=== PATIENT | female | born 2000 | race Caucasian/White ===

== ENCOUNTER 2020-11-02 15:17 | Emergency (ER) | payer OTHER, SELFPAY ==
[2020-11-02 15:19] VITALS: BP 122/79; PULSE 108; RESP 15; TEMP 36.8; O2SAT 97; BMI 19.3
[2020-11-02] MEDS: 0.9% Normal Saline 1,000 ML 1000 ML IV (15:42)
[2020-11-02] MEDS: Ondansetron 4 MG/2 ML Vial IV (15:43)
[2020-11-02 15:49] LABS: Absolute Lymphocyte Count 1.25 X10^3/uL (0.83-4.51); Basophil# 0.05 X10^3/uL; Basophil% 0.6 % (0-1); Eosinophil# 0.02 X10^3/uL; Eosinophils% 0.2 % (0-5); Hematocrit 42.1 % (37-47); Hemoglobin 13.9 g/dL (12.0-15.0); Lymphocyte # 1.25 X10^3/ul (0.83-4.51); Lymphocyte % 14.2 % (19-41); Mean Corpuscular Hgb 30.1 pg (27.0-32.0); Mean Corpuscular Volume 91.1 fL (81-99); Monocyte% 4.6 % (0-10); NRBC Flagged by Analyzer 0 % (0-5); Neutrophil # 7.03 X10^3/uL (2.7-7.7); Neutrophil % 80.1 % (47-70); Platelet Count 270 K/mm3 (150-450); RBC Distribution Width CV 12.1 % (11.6-14.6); RBC Distribution Width SD 40.5 fl (35.1-43.9); Red Blood Count 4.62 M/mm3 (4.2-5.4); White Blood Count 8.8 K/mm3 (4.4-11.0)
--- NOTE | 2020-11-02 15:51 | ED.VISSUMM ---
- ER Visit Summary Date of Service: 11/02/20 Chief Complaint: Nausea History of Present Illness: The patient is a [address] Menjivar seen. She reports has been nauseated for the past week. She has not vomited. She denies any abdominal pain. She reports she has diarrhea initially, but has not had any diarrhea for 5 days. Her last bowel was yesterday. She denies any melena hematochezia. Patient is a . Her last menstrual period was September 18. She does have a history of irregular periods. She denies any dysuria or frequency. Physical Examination: Vitals: Stable. Afebrile. General: Well-nourished and well-developed. Head: Normocephalic atraumatic. Neck: Supple, no lymphadenopathy. No JVD. Nontender. Cardiovascular: Regular rate and rhythm. No murmurs. Respiratory: No respiratory distress. Clear to auscultation bilaterally. Abdominal: Soft, mild epigastric tenderness to palpation, nondistended, normal bowel sounds. No guarding, rebound, or peritoneal signs. Back: Nontender. Extremities: Nontender, no edema. Skin: Normal color, no rash. Neurologic: Alert and oriented ?3. Cranial nerves II through XII are intact. Normal strength and sensation. Psych: Normal affect. Test Results: CBC shows segmented feels 80 lymphocytes 14. Chem-7 is normal. LFTs show an AST of 8. UA shows 10-25 epithelial cells and 1+ bacteria. test is positive. Quantitative hCG is 24,394. Emergency Department Course and Treatment: Patient had an IV placed. She was given a liter normal saline. She was given Zofran IV. She is resting more comfortably. She refused pain medications. Bedside ultrasound I am unable to visualize an intrauterine . However, with her quantitative hCG being this high and no pain or vaginal bleeding I do feel it is reasonable to get an outpatient ultrasound. The patient does not want to stay for transvaginal ultrasound. Treatment Plan: Patient be discharged instructions follow-up Dr. Prakash Hilario within a week for another exam. She will be discharged with Zofran. She is instructed to return for pain, vaginal bleeding, or any other concerns. Disposition: To home in improved and stable condition. Impression: 1. , new diagnosis. 2. Nausea This note was generated with Dragon dictation software. It may contain incorrect words, spelling, and punctuation that were not noted in review of the chart prior to signing ED Disposition - Plan for ED Patient: Instructions: ED , New Dx Prescriptions: Ondansetron [Zofran Odt] 4 mg PO Q8H PRN PRN #10 tablet PRN Reason: Nausea Referrals: Lucille Trujillo MD [STAFF PHYSICIAN] - 1 Week
[2020-11-02 15:59] LABS: Internal QC Validated? YES +Cl - CLEAR BKGD
[2020-11-02 16:00] LABS: Pregnancy, Serum, hCG Quali. POSITIVE Negative
[2020-11-02 16:06] LABS: AST(SGOT) 8 U/L (15-37); Alanine Aminotransfer ALT/SGPT 15 U/L (13-56); Albumin, Serum 4.1 g/dL (3.2-5.0); Alkaline Phosphatase 62 U/L (45-117); Anion Gap 9 (5-15); BUN 12 mg/dL (7-18); BUN/Creat Ratio 17.8 RATIO (10-20); Calcium,Total 8.9 mg/dL (8.5-10.1); Chloride 104 mmol/L (98-107); Creatinine, Serum 0.68 mg/dL (0.55-1.02); EST Glomerular Filtration Rate 115 mL/min (>60); Est Glom Filt Rate - Afr Amer 139 mL/min (>60); Estimated Creatinine Clearance 111.24 ml/min; Glucose 92 mg/dL (74-106); Lipase 126 U/L (73-393); Potassium 3.5 mmol/L (3.5-5.1); Protein, Total 8.1 g/dL (6.4-8.2); Sodium Level 136 mmol/L (136-145)
[2020-11-02 16:37] LABS: Color, Urine Yellow (Yellow); Glucose, Dipstick Normal (Normal); Leukocyte Esterase-Dipstick 100 /ul (Negative); Nitrite-Dipstick Negative (Negative); Occult Blood-Urine 10 /ul (Negative); Protein-Dipstick 15 mg/dl (Negative); Specific Gravity, Urine 1.025 (1.002-1.030); Urine Bilirubin Dipstick Negative (Negative); Urine Clarity Sl. Cloudy (Clear); Urine Urobilinogen Normal (Normal)
[2020-11-02 16:42] LABS: Ketone-Dipstick 150 mg/dl (Negative); Squamous Epithelial Cells - UA 10-25 SEEN /hpf (5-10); White Blood Cells 0-5 SEEN /hpf (0-5)
[2020-11-02 16:43] LABS: Bacteria 1+ /hpf (None Seen); Mucous, Urine 2+ /hpf (<or=2+); Red Blood Cells-Urine 0-5 SEEN /hpf (0-5)
[2020-11-02 16:45] LABS: hCG Titer Quant., Serum 24394 mIU/mL (1-3)
[2020-11-02 17:11] VITALS: BP 117/77; PULSE 70; RESP 16
== END 2020-11-02 17:12 | disposition home or self-care (01) ==
LOC: ED 16:00
PROVIDERS: Emergency Provider Emergency Medicine
DX: O26.891 Other specified pregnancy related conditions, first trimester (principal); R11.0 Nausea; R51.9 Headache, unspecified; O99.281 Endocrine, nutritional and metabolic diseases complicating pregnancy, first trimester; E03.9 Hypothyroidism, unspecified; Z3A.00 Weeks of gestation of pregnancy not specified; Z79.890 Hormone replacement therapy
CPT/HCPCS: 80053; 81001; 83690; 84702; 84703; 85025; 87086; 87088; 96361; 96374; 99283; J7030; J2405

== ENCOUNTER → 2020-11-13 15:30 | Outpatient (CLI) | payer OTHER, SELFPAY ==
[2020-11-02 15:19] VITALS: BMI 19.3
[2020-11-13 17:40] LABS: Absolute Lymphocyte Count 1.48 X10^3/uL (0.83-4.51); Absolute Neutrophil Count 10.9 X10^3/uL (2.0-7.7); Basophil# 0.06 X10^3/uL; Basophil% 0.5 % (0-1); Eosinophil# 0.06 X10^3/uL; Eosinophils% 0.5 % (0-5); Hematocrit 44.6 % (37-47); Hemoglobin 14.6 g/dL (12.0-15.0); Lymphocyte # 1.48 X10^3/ul (0.83-4.51); Lymphocyte % 11.3 % (19-41); Mean Corp Hgb Conc 32.7 g/dL (32-36); Mean Corpuscular Hgb 30.4 pg (27.0-32.0); Mean Corpuscular Volume 92.7 fL (81-99); Mean Platelet Vol. 10.8 fl (6.2-12.0); Monocyte# 0.56 X10^3/uL; Monocyte% 4.3 % (0-10); NRBC Flagged by Analyzer 0 % (0-5); Neutrophil # 10.87 X10^3/uL (2.7-7.7); Neutrophil % 83.1 % (47-70); Platelet Count 340 K/mm3 (150-450); RBC Distribution Width SD 41.4 fl (35.1-43.9); Red Blood Count 4.81 M/mm3 (4.2-5.4); White Blood Count 13.1 K/mm3 (4.4-11.0)
[2020-11-13 18:04] LABS: T4 Free Direct 0.91 ng/dL (0.76-1.46); Thyroid Stim Hormone (TSH) 2.53 uIU/mL (0.358-3.74)
[2020-11-14 09:03] LABS: HIV - WCH Non-Reactive (Nonreactive); Hepatitis B Surface Antigen Non-Reactive (Nonreactive); Hepatitis C Antibody Non-Reactive (Nonreactive); Rubella IgG Reactive (Nonreactive); Syphilis Antibodies Non-reactive
[2020-11-18 03:06] LABS: Chlamydia By Nucleic Acid AMP Negative (Negative)
[2020-11-18 11:00] LABS: Gonococcus By Nucleic Acid AMP Negative (Negative)
== END ==
PROVIDERS: Visit Provider Obstetrics & Gynecology
DX: O99.281 Endocrine, nutritional and metabolic diseases complicating pregnancy, first trimester (principal); E03.9 Hypothyroidism, unspecified; Z3A.00 Weeks of gestation of pregnancy not specified
CPT/HCPCS: 36415; 84439; 84443; 85025; 86703; 86762; 86780; 86803; 87086; 87088; 87340; 87491; 87591

== ENCOUNTER → 2020-12-08 | Outpatient (CLI) | payer OTHER, SELFPAY | END | disposition home or self-care (01) | LOC: LABSPEC 14:14 | PROVIDERS: Visit Provider Obstetrics & Gynecology | DX: N39.0 Urinary tract infection, site not specified (principal) | CPT/HCPCS: 87077; 87086; 87088; 87186 ==

== ENCOUNTER → 2021-01-08 09:29 | Outpatient (CLI) | payer OTHER, SELFPAY ==
[2021-01-08 13:44] LABS: Thyroid Stim Hormone (TSH) 2.79 uIU/mL (0.358-3.74)
[2021-01-10 03:06] LABS: AFP MoM Value 1.44 (.); AFP Value-EIA 50.6 ng/mL (.); Comment Report (.); DIA MoM Value 0.62 (.); DIA Value-EIA 122.93 pg/mL (.); DSR (By Age) 1094 (.); DSR (Second Trimester) 6366 (.); Gestat. Age Based On As provided (.); Insulin Dep Diabetes No (.); Maternal Age At EDD 23.3 yr (.); hCG MoM 0.69 (.); hCG Value 45000 mIU/mL (.)
== END ==
PROVIDERS: Visit Provider Obstetrics & Gynecology
DX: Z36.1 Encounter for antenatal screening for raised alphafetoprotein level (principal); E03.9 Hypothyroidism, unspecified
CPT/HCPCS: 36415; 82105; 82677; 84443; 84702

== ENCOUNTER 2021-02-27 22:17 | Emergency (ER) | payer OTHER, SELFPAY ==
[2021-02-27 22:18] VITALS: BP 113/82; PULSE 95; RESP 15; TEMP 36.6; O2SAT 98; BMI 34.7
--- NOTE | 2021-02-27 22:19 | ED.RN ---
RN CALLED FOR EKG, NO OLD EKGS IN MUSE
[2021-02-27 23:29] VITALS: PULSE 79; RESP 17; O2SAT 95
--- NOTE | 2021-02-27 23:52 | EKG12_ITS ---
Test Reason : CP Blood Pressure : / mmHG Vent. Rate : 099 BPM Atrial Rate : 099 BPM P-R Int : 164 ms QRS Dur : 076 ms QT Int : 364 ms P-R-T Axes : 065 057 017 degrees QTc Int : 467 ms Normal sinus rhythm with sinus arrhythmia Nonspecific T wave abnormality Prolonged QT Abnormal ECG Confirmed by RADHA SALAZAR, NAZIA ([id number]), science editor SEBASTIAN BRUCE ([id number]) on 03/03/2021 9:46:19 AM Referred By: BERTA Confirmed By:NAZIA GARCIA MD
--- NOTE | 2021-02-27 23:53 | EDS_ITS ---
HPI History of Present Illness Chief Complaint: Chest Pain Informant: patient Onset/Context/Timing Onset: Yesterday Activity at onset: gradual Timing: Continuous Quality: Positive for Heaviness (With occasional mid chest sharp pain that radiates to upper back, neck, jaw when it occurs) Location: Substernal Current Severity: Moderate Maximum Severity: Moderate Worsened By: Breathing; Not Worsened By Exertion, Movement of Arm and Movement of Torso Relieved By: Nothing Associated Symptoms: Positive for Dyspnea (Mild) and Acid Reflux (Throughout recently, symptoms that are different than what she has now); Negative for Nausea, Vomiting, Diaphoresis, Cough, Fever, Lightheadedness and Palpitations Narrative Narrative: Healthy 21-year-old female G1, P0 approximately 20 weeks , presenting with pleuritic midsternal nonlateralizing chest discomfort with some mild dyspnea that started yesterday. No recent cough, fevers, chills, body aches, exposure to Covid that she knows of. She has never had Covid and never been vaccinated. She denies any leg pain or swelling. No history of DVT or PE. No other source of exogenous hormones. Was seen at urgent care today simply for itchy rash that she thinks is poison efren. No injuries recently or other illness. [facility] Medical History Hypothyroidism Home Medications levothyroxine 50 mcg PO DAILY 11/02/20 [History Last Taken Unknown] ondansetron 4 mg PO Q8H PRN PRN #10 tablet 11/02/20 [Rx Last Taken Unknown] famotidine 40 mg PO DAILY #30 tab 02/28/21 [Rx Last Taken Unknown] Allergy/AdvReac Type Severity Reaction Status Date / Time Penicillins [PCN] Allergy Hives Verified 11/02/20 15:18 Sulfa (Sulfonamide Allergy Hives Verified 11/02/20 15:18 Antibiotics) Social History Smoking Status: Never smoker ROS ROS ED Constitutional Constitutional ED: Denies chills or fever(s) Eyes Eyes: Denies change in vision or diplopia ENT ENT ED: Denies rhinorrhea or sore throat Cardiovascular Cardiovascular: Reports as per HPI and chest pain; Denies palpitations Respiratory/Chest Respiratory/Chest: Reports as per HPI and dyspnea; Denies cough Gastrointestinal Gastrointestinal: Denies abdominal pain, diarrhea, nausea or vomiting Genitourinary Genitourinary ED: Denies dysuria or hematuria Musculoskeletal Musculoskeletal: Denies back pain or neck pain Integumentary Denies abscess or rash Neurologic Neurologic: Denies headache(s), paresthesias or weakness Psychiatric Psychiatric: Denies anxiety or suicidal thoughts EXAM Physical Exam Const Vital Signs: 02/27/21 22:18 02/27/21 23:29 02/28/21 00:06 Temperature 97.8 F Temperature Source Temporal Pulse Rate 95 79 Respiratory Rate 15 17 Respiratory Effort Blood Pressure 113/82 H Blood Pressure Mean 92 Pulse Ox 98 95 Oxygen Delivery Method Room Air Room Air Room Air 02/28/21 00:08 02/28/21 01:25 Temperature Temperature Source Pulse Rate 78 Respiratory Rate 18 Respiratory Effort Normal Blood Pressure 116/76 Blood Pressure Mean 89 Pulse Ox 100 Oxygen Delivery Method Room Air Positive well nourished and well developed Constitutional Narrative: Well-appearing, conversive in full sentences General Appearance ED: well developed and NAD HEENT Reports moist mucous membranes normocephalic and atraumatic Eyes PERRL and EOMs intact bilaterally Neck full ROM and supple Resp normal respiratory effort and clear to auscultation bilaterally Cardio regular rate, regular rhythm, no murmurs, no rub, no gallops and no JVD Rate: tachycardic GI non-tender and non-distended Auscultation: normoactive bowel sounds Palpation: soft Back/Spine no CVA tenderness General Back: other FROM Extremity normal to inspection and no calf tenderness General Extremety ED: Negative for edema, pulses abnormal or tenderness General Extremity: Negative for edema or pulses abnormal Neuro oriented x3, CN's II-XII intact bilaterally and no sensory deficits noted Sensorium / Orientation: awake and alert Motor Exam: strength 5/5 throughout Skin no rashes or lesions noted and no wounds MDM MDM MDM Narrative Medical decision making narrative: Given the history, a D-dimer was obtained, it is abnormal as often is the case in . I discussed pros and cons of CT angiography of the chest to rule out pulmonary embolus, patient is comfortable with getting the CT given the fact that in my opinion the benefits of it outweig h the risks. She was shielded. It shows no pulmonary embolus as below, no other abnormalities. I held off on getting a chest x-ray until the D-dimer was back so as to minimize the radiation-providing studies. Patient was given a GI cocktail that did improve her symptoms. Since all the other tests are negative, I think it is reasonable to treat her with Pepcid until she follows up with her doctor. She is comfortable with that plan. Lab Data Attestation: I reviewed the patient's lab results. Labs: Laboratory Results - last 24 hr 02/28/21 02/28/21 02/28/21 00:03 00:03 00:03 WBC 11.3 H RBC 3.49 L Hgb 11.3 L Hct 32.7 L MCV 93.7 MCH 32.4 H MCHC 34.6 RDW Std Deviation 45.1 H RDW Coeff of Kahlil 13.2 Plt Count 245 MPV 9.7 Immature Gran % (Auto) 0.500 Neut % (Auto) 73.3 H Lymph % (Auto) 17.0 L Stephenson % (Auto) 5.8 Eos % (Auto) 2.8 Baso % (Auto) 0.6 Absolute Neuts (auto) 8.3 H Absolute Lymphs (auto) 1.93 Nucleated RBC % 0 D-Dimer Quant (PE/DVT) 0.77 H* Sodium 138 Potassium 3.9 Chloride 108 H Carbon Dioxide 25.0 Anion Gap 5 BUN 9 Creatinine 0.37 L Estim Creat Clear Calc 221.37 Est GFR (MDRD) Af Amer 275 Est GFR (MDRD) Non-Af 227 BUN/Creatinine Ratio 24.1 H Glucose 81 Calcium 8.3 L Troponin I High Sens < 3.0 L Radiography Diagnostic Testing: Radiology Impression Chest CTA 02/28/21 00:45 IMPRESSION: No acute finding in the chest with no evidence of pulmonary embolism. Electronically Signed: Chris Zambrano MD at 1:29 EDT Tel , Service support , EKG Initial EKG: Attestation: I personally reviewed and interpreted this EKG as follows: Interpretation: Sinus Arrythmia and Non-Specific ST Changes Comments: No [id number] Discharge Plan Triage Chief Complaint: Chest Pain ED Provider: Lakhwinder Brown Dx/Rx/DC Orders Clinical Impression: Chest pain during Instructions: ED Chest Pain, Noncardiac Prescriptions: New famotidine 40 mg tablet 40 mg PO DAILY Qty: 30 RF: 0 No Action levothyroxine 50 MCG tablet 50 mcg PO DAILY RF: 0 ondansetron 4 MG tablet 4 mg PO Q8H PRN PRN (Reason: Nausea) Qty: 10 RF: 0 Primary Care Provider: [facility] Doctor,Out of Referrals: [facility] Doctor,Out of [Primary Care Provider] - 1 Week if not improving Disposition Disposition: Home, Self Care
[2021-02-28] MEDS: Mag Hydrox/Al Hydrox/Simeth 30 ML UDC PO
[2021-02-28 00:14] LABS: Absolute Lymphocyte Count 1.93 X10^3/uL (0.83-4.51); Absolute Neutrophil Count 8.3 X10^3/uL (2.0-7.7); Basophil# 0.07 X10^3/uL; Basophil% 0.6 % (0-1); Eosinophil# 0.32 X10^3/uL; Eosinophils% 2.8 % (0-5); Hematocrit 32.7 % (37-47); Hemoglobin 11.3 g/dL (12.0-15.0); Lymphocyte # 1.93 X10^3/ul (0.83-4.51); Mean Corp Hgb Conc 34.6 g/dL (32-36); Mean Corpuscular Hgb 32.4 pg (27.0-32.0); Mean Corpuscular Volume 93.7 fL (81-99); Mean Platelet Vol. 9.7 fl (6.2-12.0); Monocyte# 0.66 X10^3/uL; Monocyte% 5.8 % (0-10); NRBC Flagged by Analyzer 0 % (0-5); Neutrophil # 8.29 X10^3/uL (2.7-7.7); Neutrophil % 73.3 % (47-70); Platelet Count 245 K/mm3 (150-450); RBC Distribution Width CV 13.2 % (11.6-14.6); RBC Distribution Width SD 45.1 fl (35.1-43.9); Red Blood Count 3.49 M/mm3 (4.2-5.4); White Blood Count 11.3 K/mm3 (4.4-11.0)
[2021-02-28 00:33] LABS: Anion Gap 5 (5-15); BUN 9 mg/dL (7-18); BUN/Creat Ratio 24.1 RATIO (10-20); Calcium,Total 8.3 mg/dL (8.5-10.1); Chloride 108 mmol/L (98-107); Creatinine, Serum 0.37 mg/dL (0.55-1.02); EST Glomerular Filtration Rate 227 mL/min (>60); Est Glom Filt Rate - Afr Amer 275 mL/min (>60); Estimated Creatinine Clearance 221.37 ml/min; Glucose 81 mg/dL (74-106); Potassium 3.9 mmol/L (3.5-5.1); Sodium Level 138 mmol/L (136-145); Troponin-I HS < 3.0 pg/mL (3.0-53.7)
[2021-02-28 00:36] LABS: D-Dimer Quantitative (DVT/PE) 0.77 FEU/ug/m (0.27-0.49)
--- NOTE | 2021-02-28 00:45 | CT_ITS ---
STUDY: CTA CHEST REASON FOR EXAM: Female, 21 years old. chest pain, sob, , elevated d-dimer RADIATION DOSAGE (If Supplied By Facility): CTDIvol = ( 9.34 ) mGy, DLP = ( 287.04 ) mGycm TECHNIQUE: The examination was performed with the intravenous administration of IV 75mL Isovue-370. Post-processing of the angiographic images was performed, with multiplanar reformation and 3D reconstruction. Individualized dose optimization techniques were used for this CT. COMPARISON: None. FINDINGS: No filling defect in the pulmonary arteries to suggest pulmonary embolism. Intact thoracic aorta and coronary arteries. No adenopathy. No pleural or pericardial effusion. Mildly enlarged and nodular thyroid. The dominant nodule is located in the right lobe and measures up to 1.6 cm ultrasound may be obtained for further evaluation. No pneumothorax. No suspicious pulmonary nodule, mass, or consolidation. Sections through the upper abdomen demonstrate intact visualized abdominal viscera. No acute finding the regional skeleton. CT/CTA Chest W/WO Contrast IMPRESSION: No acute finding in the chest with no evidence of pulmonary embolism. Electronically Signed: Chris Zambrano MD at 1:29 EDT Tel , Service support ,
[2021-02-28] MEDS: 0.9% Normal Saline 1,000 ML 999 ML IV (00:57)
[2021-02-28 01:25] VITALS: BP 116/76; PULSE 78; RESP 18; O2SAT 100
[2021-02-28] MEDS: Famotidine 20 MG Tablet 40 MG PO (02:00)
[2021-02-28 02:01] VITALS: BP 109/76
== END 2021-02-28 02:02 | disposition home or self-care (01) ==
PROVIDERS: Emergency Provider Emergency Medicine
DX: O99.891 Other specified diseases and conditions complicating pregnancy (principal); R07.9 Chest pain, unspecified; O99.282 Endocrine, nutritional and metabolic diseases complicating pregnancy, second trimester; E03.9 Hypothyroidism, unspecified; O99.612 Diseases of the digestive system complicating pregnancy, second trimester; K21.9 Gastro-esophageal reflux disease without esophagitis; Z3A.20 20 weeks gestation of pregnancy
CPT/HCPCS: 71275; 80048; 84484; 85025; 85379; 93005; 96360; 99285; J7030; Q9967; A4216

== ENCOUNTER 2021-03-14 20:01 | Outpatient (CLI) | payer OTHER, SELFPAY ==
[2021-03-14 20:15] VITALS: BMI 21.0
[2021-03-14 20:16] VITALS: TEMP 37.6
[2021-03-14 20:23] VITALS: BP 132/83; PULSE 78; PULSE 82; O2SAT 100
[2021-03-14] MEDS: cycloBENZAPRine HCl 10 MG Tablet PO (21:02)
--- NOTE | 2021-03-14 21:12 | OB.TRI.NOTE ---
HPI - General HPI Narrative ALEXA DOMINGUEZ, is a 21 F who presents with pelvic pain PFSH PFSH Medical History Hypothyroidism Home Medications ondansetron 4 mg PO Q8H PRN PRN #10 tablet 11/02/20 [Rx Last Taken Unknown] acetaminophen [Tylenol] 325 mg PO Q6H 03/14/21 [History Last Taken Unknown] [id number] [] tab PO 03/14/21 [History Last Taken Unknown] Allergy/AdvReac Type Severity Reaction Status Date / Time Latex, Natural Rubber Allergy Rash Verified 03/14/21 20:35 Penicillins [PCN] Allergy Hives Verified 11/02/20 15:18 Sulfa (Sulfonamide Allergy Hives Verified 11/02/20 15:18 Antibiotics) Social History Smoking Status: Never smoker NST FHR Rate Baby A Baseline: 140 Variability:: Moderate Accelerations:: 10 x 10 NST Reactive:: Yes Uterine Activity:: Quiet Assessment & Plan (1) : PLAN: Patient arrives with pelvic pain. No signs of labor. UTI, Rx Macrobid sent. Resolved with Flexeril. Okay to discharge home and follow-up at scheduled appointments
[2021-03-14 21:27] LABS: Color, Urine Yellow (Yellow); Glucose, Dipstick Normal (Normal); Ketone-Dipstick Negative (Negative); Leukocyte Esterase-Dipstick 100 /ul (Negative); Nitrite-Dipstick Negative (Negative); Occult Blood-Urine Negative /ul (Negative); Protein-Dipstick Negative (Negative); Specific Gravity, Urine 1.015 (1.002-1.030); Urine Bilirubin Dipstick Negative (Negative); Urine Clarity Sl. Cloudy (Clear); Urine Urobilinogen Normal (Normal)
== END 2021-03-14 21:45 | disposition home or self-care (01) ==
LOC: WPOUT 20:14 → WP 20:14
PROVIDERS: Visit Provider Obstetrics & Gynecology
DX: O23.40 Unspecified infection of urinary tract in pregnancy, unspecified trimester (principal); O99.280 Endocrine, nutritional and metabolic diseases complicating pregnancy, unspecified trimester; E03.9 Hypothyroidism, unspecified; Z3A.00 Weeks of gestation of pregnancy not specified
CPT/HCPCS: 59025; 59050; 81002; 99218; G0378

== ENCOUNTER 2021-03-16 20:20 | Outpatient (CLI) | payer OTHER, SELFPAY ==
[2021-03-16] VITALS (9 sets, daily range): BP systolic 116–125; BP diastolic 71–83; PULSE 80–93; TEMP 36.8; O2SAT 92–100; BMI 20.4
[2021-03-16] MEDS: cycloBENZAPRine HCl 10 MG Tablet PO (22:09)
[2021-03-16] MEDS: Ceftriaxone 1 GM Vial IM (22:22)
--- NOTE | 2021-03-17 12:34 | OB.TRI.NOTE ---
HPI - General HPI Narrative ALEXA DOMINGUEZ, is a 21 F who presents back pain PFSH PFSH Medical History Hypothyroidism Home Medications ondansetron 4 mg PO Q8H PRN PRN #10 tablet 11/02/20 [Rx Last Taken Unknown] acetaminophen [Tylenol] 325 mg PO Q6H 03/14/21 [History Last Taken Unknown] [id number] [] 1 tab PO DAILY 03/14/21 [History Last Taken 03/14/21 08:00] Allergy/AdvReac Type Severity Reaction Status Date / Time Latex, Natural Rubber Allergy Rash Verified 03/16/21 20:58 Penicillins [PCN] Allergy Hives Verified 03/16/21 20:58 Sulfa (Sulfonamide Allergy Hives Verified 03/16/21 20:58 Antibiotics) Social History Smoking Status: Never smoker NST FHR Rate Baby A Baseline: 140 Assessment & Plan (1) : PLAN: Patient arrives with back pain. Previously given Macrobid diagnosed with UTI and Flexeril, patient did not take any of these medications. Today given Rocephin 1 g IM and Flexeril. Encouraged to take at home medications.
== END 2021-03-16 23:15 | disposition home or self-care (01) ==
LOC: WPOUT 20:36 → WP 20:37
PROVIDERS: Referring Provider Obstetrics & Gynecology; Visit Provider Obstetrics & Gynecology
DX: O99.891 Other specified diseases and conditions complicating pregnancy (principal); M54.9 Dorsalgia, unspecified; Z87.440 Personal history of urinary (tract) infections; Z3A.00 Weeks of gestation of pregnancy not specified
CPT/HCPCS: 59025; 59050; 96372; 99218; G0378

== ENCOUNTER → 2021-04-09 10:06 | Outpatient (CLI) | payer OTHER, SELFPAY ==
[2021-04-09 11:42] LABS: Hematocrit 34.7 % (37-47); Hemoglobin 11.7 g/dL (12.0-15.0); Mean Corp Hgb Conc 33.7 g/dL (32-36); Mean Corpuscular Hgb 31.7 pg (27.0-32.0); Mean Platelet Vol. 9.6 fl (6.2-12.0); Platelet Count 235 K/mm3 (150-450); RBC Distribution Width CV 12.6 % (11.6-14.6); RBC Distribution Width SD 43.5 fl (35.1-43.9); Red Blood Count 3.69 M/mm3 (4.2-5.4); White Blood Count 10.5 K/mm3 (4.4-11.0)
[2021-04-09 12:20] LABS: Glucose Challenge Gest 1H 50g 97 mg/dL (70-140); T4 Free Direct 0.95 ng/dL (0.76-1.46); Thyroid Stim Hormone (TSH) 2.01 uIU/mL (0.358-3.74)
== END ==
PROVIDERS: Visit Provider Obstetrics & Gynecology
DX: Z34.83 Encounter for supervision of other normal pregnancy, third trimester (principal)
CPT/HCPCS: 36415; 82950; 84439; 84443; 85027; 87086; 87088

== ENCOUNTER 2021-04-28 18:10 | Outpatient (CLI) | payer OTHER, SELFPAY ==
[2021-04-28 18:28] VITALS: BMI 22.1
[2021-04-28 18:34] VITALS: BP 120/75; PULSE 102; PULSE 98; TEMP 37.2; O2SAT 98
--- NOTE | 2021-05-03 13:09 | OB.TRI.NOTE ---
HPI - General HPI Narrative ALEXA DOMINGUEZ, is a 21 F who presents with c/o decreased movement. PFSH PFSH Medical History Hypothyroidism Home Medications ondansetron 4 mg PO Q8H PRN PRN #10 tablet 11/02/20 [Rx Last Taken Unknown] acetaminophen [Tylenol] 325 mg PO Q6H 03/14/21 [History Last Taken Unknown] [id number] [] 1 tab PO DAILY 03/14/21 [History Last Taken 03/14/21 08:00] Allergy/AdvReac Type Severity Reaction Status Date / Time Latex, Natural Rubber Allergy Rash Verified 04/28/21 18:29 Penicillins [PCN] Allergy Hives Verified 04/28/21 18:29 Sulfa (Sulfonamide Allergy Hives Verified 04/28/21 18:29 Antibiotics) Social History Smoking Status: Never smoker NST FHR Rate Baby A Baseline: 130 Variability:: Moderate Accelerations:: 15 x 15 Decelerations:: None NST Reactive:: Yes FHR Category:: Category I Uterine Activity:: 0/10 Assessment & Plan (1) : QUALIFIERS: Weeks of gestation: 31 weeks Qualified Code(s): Z3A.31 - 31 weeks gestation of PLAN: 31 10/22 wga Cat I FHR, status reassuring d/c home
== END 2021-04-28 19:05 | disposition home or self-care (01) ==
LOC: WPOUT 18:17 → WP 18:18
PROVIDERS: Visit Provider Obstetrics & Gynecology
DX: O36.8130 Decreased fetal movements, third trimester, not applicable or unspecified (principal); Z3A.31 31 weeks gestation of pregnancy
CPT/HCPCS: 59025; 59050; 99218; G0378

== ENCOUNTER → 2021-05-29 | Outpatient (CLI) | payer OTHER, SELFPAY | END | disposition home or self-care (01) | LOC: LABSPEC 13:49 | PROVIDERS: Visit Provider Obstetrics & Gynecology | DX: Z36.85 Encounter for antenatal screening for Streptococcus B (principal) | CPT/HCPCS: 87081 ==

== ENCOUNTER 2021-08-13 11:46 | Outpatient (CLI) | payer OTHER, SELFPAY | END 2021-08-13 23:59 | disposition short-term general hospital (02) | PROVIDERS: Visit Provider Obstetrics & Gynecology | DX: N89.8 Other specified noninflammatory disorders of vagina (principal) ==

== ENCOUNTER 2021-09-17 16:28 | Outpatient (CLI) | payer OTHER, SELFPAY ==
[2021-09-17 18:19] LABS: Free T3 2.9 pg/mL (2.18-3.98); T4 Free Direct 1.19 ng/dL (0.76-1.46); Thyroid Stim Hormone (TSH) 0.01 uIU/mL (0.358-3.74)
== END 2021-09-17 23:59 | disposition home or self-care (01) ==
LOC: LAB.FUTURE 16:28 → WOBLAB 16:33
PROVIDERS: Visit Provider Obstetrics & Gynecology
DX: E03.9 Hypothyroidism, unspecified (principal); Z51.81 Encounter for therapeutic drug level monitoring
CPT/HCPCS: 36415; 84439; 84443; 84481

== ENCOUNTER → 2022-04-08 | Outpatient (CLI) | payer OTHER, SELFPAY ==
[2022-04-09 22:07] LABS: Chlamydia By Nucleic Acid AMP Negative (Negative)
[2022-04-10 10:11] LABS: Gonococcus By Nucleic Acid AMP Negative (Negative)
[2022-04-18 09:06] LABS: HPV APTIMA, High Risk Positive (Negative)
== END | disposition home or self-care (01) ==
LOC: LABSPEC 10:17
PROVIDERS: Visit Provider Obstetrics & Gynecology
DX: Z12.4 Encounter for screening for malignant neoplasm of cervix (principal); Z11.3 Encounter for screening for infections with a predominantly sexual mode of transmission
CPT/HCPCS: 87491; 87591; 87624; 88175; G0145